=== PATIENT | female | born 1990 | race African-American/Black ===

== ENCOUNTER 2016-09-29 20:37 | Emergency (ER) | payer SELFPAY | END 2016-09-29 22:30 | disposition left against medical advice (07) | LOC: ER 22:24 | DX: Z53.21 Procedure and treatment not carried out due to patient leaving prior to being seen by health care provider (principal) ==

== ENCOUNTER 2019-10-19 13:35 | Inpatient (IN) | payer MEDICAID ==
[~2019-10-19] VITALS: Ht 162.6 cm; Wt 70.3 kg
[2019-10-19 15:24] LABS: BASOPHILS % 0.3 % (0.0-2.0); HEMATOCRIT. 39.9 % (36.0-48.0); LYMPHOCYTES % 12.3 % (20.0-50.0); MEAN CORPUSCULAR HEMOGLOBIN 32.5 pg (28.0-32.0); MEAN CORPUSCULAR VOLUME 92.4 fL (81.0-99.0); MEAN PLATELET VOLUME 8.5 fl (7.4-10.4); MONOCYTES % 5.1 % (2.0-8.0); NEUTROPHILS % 81.3 % (40.0-76.0); PLATELET 233 x1000/uL (130-400); RED BLOOD CELL COUNT 4.32 mill/uL (4.2-5.4); RED CELL DISTRIBUTION WIDTH 12.6 % (11.6-14.6)
[2019-10-19 15:25] LABS: CHLORIDE 110 mEq/L (98-107)
[2019-10-19 15:35] LABS: B-HCG QUANTITATIVE < 1 mIU/mL (<3)
[2019-10-19 17:23] LABS: CLARITY URINE CLEAR (CLEAR); COLOR URINE YELLOW (YELLOW); KETONES URINE TRACE (NEGATIVE); LEUKOCYTE ESTERASE URINE NEGATIVE (NEGATIVE); NITRITE URINE NEGATIVE (NEGATIVE); OCCULT BLOOD URINE TRACE (NEGATIVE); PH URINE 6.5 (4.5-8.0); PROTEIN URINE NEGATIVE (NEGATIVE); SPECIFIC GRAVITY URINE 1.026 (1.005-1.030)
[2019-10-19 17:48] LABS: *BARBITURATES SCREEN URINE NEGATIVE (NEGATIVE); *BENZODIAZEPINES SCREEN URINE NEGATIVE (NEGATIVE)
[2019-10-19 17:49] LABS: *COCAINE SCREEN URINE NEGATIVE (NEGATIVE); METHADONE URINE SCREEN NEGATIVE (NEGATIVE); OPIATES URINE SCREEN NEGATIVE (NEGATIVE); PHENCYCLIDINE URINE SCREEN NEGATIVE (NEGATIVE)
[2019-10-19 17:51] LABS: *AMPHETAMINES SCREEN URINE PRESUMTIVE POSITIVE (NEGATIVE); CANNABINOID URINE SCREEN PRESUMTIVE POSITIVE (NEGATIVE)
[2019-10-19] MEDS ORDERED: SODIUM CHLORIDE 0.9% 1,000 ML IV ONE (18:08)
[2019-10-19] MEDS ORDERED: MORPHINE SULFATE 4 MG/ML CPJ (NOT FOR IM USE) IV STA (18:08)
[2019-10-19] MEDS ORDERED: ONDANSETRON HCL 4MG/2ML INJ IV STA (18:08)
[2019-10-19] MEDS ORDERED: IOHEXOL-300 100 ML BOTTLE ONE (19:18)
[2019-10-19] MEDS ORDERED: CEFTRIAXONE 1 G PREMIX 50 ML IV ONE (21:15)
[2019-10-19] MEDS ORDERED: METRONIDAZOLE 500 MG PREMIX 100 ML IV ONE (21:15)
[2019-10-19] MEDS ORDERED: KETOROLAC 30MG/ML VIAL IV ONE (21:15)
[2019-10-20] MEDS ORDERED: KETOROLAC 30MG/ML VIAL IV PRN (09:30)
[2019-10-20] MEDS ORDERED: ACETAMINOPHEN 325MG TABLET PO PRN (09:30)
[2019-10-20] MEDS ORDERED: ONDANSETRON HCL 4MG/2ML INJ IV PRN (09:30)
[2019-10-20] MEDS: PIPERACILLIN/TAZOBACTAM 3.375 G in DEXT 5% WATER 100 ML IV SCH ×2 (12:46→18:00)
[2019-10-20 15:00] VITALS: BP 113/36
[2019-10-20 16:39] VITALS: BP 108/68
[2019-10-20 20:17] VITALS: BP 124/56
== END 2019-10-20 19:33 | disposition home or self-care (01) | DRG 249 ==
LOC: ER 13:35 → MICUSO 21:18 → 6EST 10-20 09:58
PROVIDERS: ADMIT Internal Medicine; ATTEND Internal Medicine
DX: K52.9 Noninfective gastroenteritis and colitis, unspecified (principal); E87.8 Other disorders of electrolyte and fluid balance, not elsewhere classified; F12.90 Cannabis use, unspecified, uncomplicated; F17.210 Nicotine dependence, cigarettes, uncomplicated; Z71.51 Drug abuse counseling and surveillance of drug abuser
CPT/HCPCS: 36415; 74177; 80053; 80305; 81003; 84702; 85025; 86850; 86900; 99285; J0696; J1885; J2270; J2405; J2543; J3490; J7030; J7060; Q9967

== ENCOUNTER 2021-01-22 09:35 | Emergency (ER) | payer MEDICAID, OTHER ==
[~2021-01-22] VITALS: Ht 162.6 cm; Wt 79.5 kg
[2021-01-22] MEDS ORDERED: ACETAMINOPHEN 325MG TABLET PO ONE (10:15)
[2021-01-22 10:50] LABS: BASOPHILS % 0.4 % (0.0-2.0); EOSINOPHILS % 1.6 % (0.0-5.0); HEMATOCRIT. 32.4 % (36.0-48.0); HEMOGLOBIN. 11.4 g/dL (12.0-16.0); LYMPHOCYTES % 22.7 % (20.0-50.0); MEAN CORPUSCULAR HEMOGLOBIN 31.7 pg (28.0-32.0); MEAN PLATELET VOLUME 8.1 fl (7.4-10.4); MONOCYTES % 5.7 % (2.0-8.0); NEUTROPHILS % 69.6 % (40.0-76.0); PLATELET 213 x1000/uL (130-400); RED CELL DISTRIBUTION WIDTH 13.6 % (11.6-14.6)
[2021-01-22 10:57] LABS: CHLORIDE 108 mEq/L (98-107)
[2021-01-22 11:03] LABS: CLARITY URINE CLEAR (CLEAR); COLOR URINE YELLOW (YELLOW); KETONES URINE NEGATIVE (NEGATIVE); LEUKOCYTE ESTERASE URINE NEGATIVE (NEGATIVE); NITRITE URINE NEGATIVE (NEGATIVE); OCCULT BLOOD URINE 2+ (NEGATIVE); PROTEIN URINE 2+ (NEGATIVE); SPECIFIC GRAVITY URINE 1.008 (1.005-1.030); UROBILINOGEN URINE 0.2 E.U./dL (0.2-1.0)
[2021-01-22 13:04] VITALS: BP 112/54
== END 2021-01-22 13:30 ==
LOC: ER 09:35
DX: R10.9 Unspecified abdominal pain (principal)
CPT/HCPCS: 36415; 76805; 80053; 81003; 83690; 85025; 86850; 86900; 86901; 99284; Z7610